=== PATIENT | female | born 1990 | race Caucasian/White ===

== ENCOUNTER → 2017-01-10 | Outpatient (CLI) | payer OTHER ==
[~2017-01-10] MED LIST: OXYC-471 PO; PNV1TABL81 PO
== END ==
DX: M54.2 Cervicalgia (principal); M79.622 Pain in left upper arm

== ENCOUNTER 2018-11-23 09:23 | Emergency (ER) | payer OTHER ==
[~2018-11-23] VITALS: Ht 157.5 cm; Wt 56.7 kg
[2018-11-23 10:12] LABS: CLARITY,URINE CLEAR; COLOR,URINE YELLOW; GLUCOSE, URINE (UA) NEGATIVE (NEGATIVE); KETONES,URINE NEGATIVE (NEGATIVE); LEUKOCYTE ESTERASE ,URINE 1+ (NEGATIVE); NITRITE,URINE POSITIVE (NEGATIVE); PH,URINE 7 (5-9); PROTEIN,URINE NEGATIVE (NEGATIVE); UROBILINOGEN,URINE 4 MG/DL (NORMAL)
[2018-11-23 10:24] LABS: BACTERIA,URINE NEGATIVE /HPF; BILIRUBIN,URINE 2+ (NEGATIVE); RBC,URINE 0-2 /HPF; SQUAMOUS EPITHELIAL CELL,UR RARE /HPF
[2018-11-23] MEDS ORDERED: PHENAZOPYRIDINE 100 MG (PYRIDIUM) TABLET PO ONE (10:45)
[2018-11-23] MEDS ORDERED: NS IV 1000 ML 1,000 ML IV SCH (10:45)
[2018-11-23] MEDS ORDERED: cefTRIAXone FOR IV USE 1,000 MG in WATER (STERILE) FOR INJECTION 10 ML IV ONE (10:45)
--- NOTE | 2018-11-23 10:47 | ED GU-Female ---
General Chief Complaint: - Urinary Stated Complaint: L SIDE/LOWER BACK PAIN Nursing Triage Note: PATIENT AMBULATORY TO ER WITH COMPLAINT OF LEFT FLANK PAIN RADIATING INTO LEFT LOWER PELVIS. PATIENT STATES SYMPTOMS BEGAN ON SATURDAY AND SHE CALLED HER [employer]REET[employer] REPAIRER HELPER DR. SARA RAPHAEL AND WAS PLACED ON MACROBID. SHE HAD A UA CULTURE AT THAT TIME WHICH SHE STATES WAS NEGATIVE. SHE STATES ON SATURDAY THE SYMPTOMS GOT WORSE SO SHE SAW DR. ROLLINS WHO GAVE HER AN IM ANTIBIOTIC. THE PAIN CONTINUES TODAY WITH NO RELIEF. SHE HAS BEEN TAKING PYRIDIUM WITH NO RELIEF. SHE STATES SHE FEELS LIKE HER BLADDER IS FULL AND HAS PAIN WITH URINATION. SHE IS ALSO COMPLAINING OF NAUSEA AND WEAKNESS. Nursing Sepsis Screen: No Definite Risk Source: patient Exam Limitations: no limitations History of Present Illness Date Seen by Provider: November 23, 2018 Time Seen by Provider: 10:46 Initial Comments To ER with left flank pain 1 week. Has been on Macrobid, Pyridium which she is still on. She was also given an injection of antibiotic one point. Pain began Saturday, symptoms are essentially not improved today. No fevers or chills. States that she's had a bladder infection before and this feels different. She has a constant sensation of need to empty her bladder but unable to do so. Timing/Duration: constant Severity/Quality: moderate Location: left flank Radiation: none Activities at Onset: none Prior Genitourinary Problems: none Associated Symptoms: dysuria Allergies and Home Medications Allergies Coded Allergies: Sulfa (Sulfonamide Antibiotics) (Verified Allergy, Intermediate, 11/23/18) Home Medications Ketorolac Tromethamine 10 Mg Tablet, 10 MG PO Q6H PRN for PAIN-MODERATE TO SEVERE Prescribed by: MANUEL CALIX on 11/23/18 1143 Tamsulosin HCl 0.4 Mg Cap, 0.4 MG PO DAILY Prescribed by: MANUEL CALIX on 11/23/18 1143 Patient Home Medication List Home Medication List Reviewed: Yes Review of Systems Review of Systems Constitutional: see HPI; No chills, No fever EENTM: see HPI Respiratory: no symptoms reported Cardiovascular: no symptoms reported Genitourinary: see HPI, dysuria, frequency, flank pain Musculoskeletal: no symptoms reported Skin: no symptoms reported Psychiatric/Neurological: No Symptoms Reported Past Dyvmgqa-Nlhoha-Feqjto Hx Patient Social History Alcohol Use: Denies Use Recreational Drug Use: No Smoking Status: Never a Smoker 2nd Hand Smoke Exposure: No Recent Foreign Travel: No Contact w/Someone Who Travel: No Recent Infectious Disease Expo: No Recent Hopitalizations: No Immunizations Up To Date PED Vaccines UTD: Yes Date of Influenza Vaccine: May 05, 2015 Seasonal Allergies Seasonal Allergies: No Past Medical History Surgeries: No Respiratory: No Cardiac: No Neurological: No : No Reproductive Disorders: No Genitourinary: No Gastrointestinal: No Musculoskeletal: No Endocrine: No HEENT: No Cancer: No Psychosocial: No Integumentary: No Blood Disorders: No Family Medical History No Pertinent Family Hx Physical Exam Vital Signs Vital Signs - First Documented 11/23/18 09:28 Temp 98.4 Pulse 103 Resp 16 B/P (MAP) 126/98 (107) Pulse Ox 97 O2 Delivery Room Air Capillary Refill : Less Than 3 Seconds Height, Weight, BMI Height: 5'2.00" Weight: 125lbs. 1.0oz. [id number]; 23.8 BMI Method:Actual General Appearance: WD/WN, no apparent distress HEENT: PERRL/EOMI, normal ENT inspection Neck: non-tender, full range of motion Respiratory: no respiratory distress, no accessory muscle use Gastrointestinal: normal bowel sounds, soft, tenderness Extremities: normal range of motion, non-tender Neurologic/Psychiatric: alert, normal mood/affect, oriented x 3 Skin: normal color, warm/dry Progress/Results/Core Measures Suspected Sepsis Recent Fever Within 48 Hours: No Infection Criteria Present: None New/Unexplained Altered Menta: No Sepsis Screen: No Definite Risk SIRS Temperature:98.4 Pulse: 103 Respiratory Rate: 16 Laboratory Tests 11/23/18 11:02: White Blood Count 9.3 Blood Pressure 126 /98 Mean: 107 Laboratory Tests 11/23/18 11:02: Creatinine 0.84, Platelet Count 228, Total Bilirubin 0.4 Results/Orders Lab Results Laboratory Tests Test 11/23/18 09:40 11/23/18 11:02 Range/Units Urine Color YELLOW Urine Clarity CLEAR Urine pH 7 5-9 Urine Specific Melcroft 1.005 L 1.016-1.022 Urine Protein NEGATIVE NEGATIVE Urine Glucose (UA) NEGATIVE NEGATIVE Urine Ketones NEGATIVE NEGATIVE Urine Nitrite POSITIVE H NEGATIVE Urine Bilirubin 2+ H NEGATIVE Urine Urobilinogen 4 H NORMAL MG/DL Urine Leukocyte Esterase 1+ H NEGATIVE Urine RBC (Auto) 1+ H NEGATIVE Urine RBC 0-2 /HPF Urine WBC 2-5 /HPF Urine Squamous Epithelial Cells RARE /HPF Urine Crystals NONE /LPF Urine Bacteria NEGATIVE /HPF Urine Casts NONE /LPF Urine Mucus NEGATIVE /LPF Urine Culture Indicated YES Urine Test NEGATIVE NEGATIVE White Blood Count 9.3 4.3-11.0 10^3/uL Red Blood Count 5.03 4.35-5.85 10^6/uL Hemoglobin 14.0 11.5-16.0 G/DL Hematocrit 42 35-52 % Mean Corpuscular Volume 84 80-99 FL Mean Corpuscular Hemoglobin 28 25-34 PG Mean Corpuscular Hemoglobin Concent 33 32-36 G/DL Red Cell Distribution Width 14.3 10.0-14.5 % Platelet Count 228 130-400 10^3/uL Mean Platelet Volume 9.2 7.4-10.4 FL Neutrophils (%) (Auto) 67 42-75 % Lymphocytes (%) (Auto) 21 12-44 % Monocytes (%) (Auto) 9 0-12 % Eosinophils (%) (Auto) 3 0-10 % Basophils (%) (Auto) 1 0-10 % Neutrophils # (Auto) 6.2 1.8-7.8 X 10^3 Lymphocytes # (Auto) 2.0 1.0-4.0 X 10^3 Monocytes # (Auto) 0.8 0.0-1.0 X 10^3 Eosinophils # (Auto) 0.3 0.0-0.3 10^3/uL Basophils # (Auto) 0.1 0.0-0.1 10^3/uL Sodium Level 142 135-145 MMOL/L Potassium Level 4.3 3.6-5.0 MMOL/L Chloride Level 106 98-107 MMOL/L Carbon Dioxide Level 27 21-32 MMOL/L Anion Gap 9 5-14 MMOL/L Blood Urea Nitrogen 12 7-18 MG/DL Creatinine 0.84 0.60-1.30 MG/DL Estimat Glomerular Filtration Rate > 60 BUN/Creatinine Ratio 14 Glucose Level 86 70-105 MG/DL Calcium Level 9.7 8.5-10.1 MG/DL Corrected Calcium 8.5-10.1 MG/DL Total Bilirubin 0.4 0.1-1.0 MG/DL Aspartate Amino Transf (AST/SGOT) 30 5-34 U/L Alanine Aminotransferase (ALT/SGPT) 38 0-55 U/L Alkaline Phosphatase 91 40-136 U/L Total Protein 7.7 6.4-8.2 GM/DL Albumin 4.7 H 3.2-4.5 GM/DL My Orders Orders - MANUEL CALIX APRN Cbc With Automated Diff (11/23/18 10:42) Comprehensive Metabolic Panel (11/23/18 10:42) Ed Iv/Invasive Line Start (11/23/18 10:42) Ns Iv 1000 Ml (Sodium Chloride 0.9%) (11/23/18 10:45) Ceftriaxone For Iv Use (Rocephin For I (11/23/18 10:45) Phenazopyridine Tablet (Pyridium Tablet) (11/23/18 10:45) Hcg,Qualitative Urine (11/23/18 10:45) Ct Abd/Pelvis Wo(Kidney Stone) (11/23/18 10:45) Ketorolac Injection (Toradol Injection) (11/23/18 11:45) Medications Given in ED Current Medications Medications Dose Ordered Sig/Kurt Route Start Time Stop Time Status Last Admin Dose Admin Ceftriaxone Sodium 1000 mg/ Sterile Water 10 ml @ 200 mls/hr ONCE ONCE IV 11/23/18 10:45 11/23/18 10:47 DC 11/23/18 11:04 200 MLS/HR Ketorolac Tromethamine 15 mg ONCE ONCE IVP 11/23/18 11:45 11/23/18 11:46 DC 11/23/18 11:47 15 MG Phenazopyridine HCl 200 mg ONCE ONCE PO 11/23/18 10:45 11/23/18 10:46 DC 11/23/18 11:04 200 MG Vital Signs/I&O 11/23/18 09:28 Temp 98.4 Pulse 103 Resp 16 B/P (MAP) 126/98 (107) Pulse Ox 97 O2 Delivery Room Air Capillary Refill : Less Than 3 Seconds Blood Pressure Mean: 107 Diagnostic Imaging Diagonstic Imaging: CT Comments NAME: THANH IBARRA Angela [facility] REC#: [id number] PT STATUS: REG ER : 1990 PHYSICIAN: MANUEL CALIX APRN ADMIT DATE: 11/23/18/ER Draft Date of Exam:11/23/18 CT ABD/PELVIS WO(KIDNEY STONE) PROCEDURE: CT urinary tract, rule out kidney stone. TECHNIQUE: Multiple contiguous axial images were obtained through the abdomen and pelvis without the use of intravenous contrast. Auto Exposure Controls were utilized during the CT exam to meet ALARA standards for radiation dose reduction. INDICATION: Left flank pain. COMPARISON: None. FINDINGS: Lung bases are clear. The liver, gallbladder, pancreas, spleen, adrenals, kidneys and right ureter are negative on this noncontrast exam. There is a 0.4 cm renal stone in the left ureterovesicular junction resulting in mild to moderate left ureteral pyelocaliectasis. No renal stones. Normal appendix. No free intraperitoneal air or fluid. No lymphadenopathy. No evidence of bowel obstruction. Osseous structures are intact. IMPRESSION: 0.4 cm renal stone in the left ureterovesicular junction resulting in mild to moderate left hydronephrosis. Dictated on workstation # [id number] Dict: 11/23/18 1137 Trans: 11/23/18 1148 [id number] Interpreted by: LUCIANO JACQUES MD Electronically signed by: Departure Impression Primary Impression: Left ureteral stone Disposition: 01 HOME, SELF-CARE Condition: Stable Departure-Patient Inst. Decision time for Depature: 11:41 Referrals: LAVINIA ROLLINS DO (PCP/Family) Primary Care Physician EDGARD VANN MD Patient Instructions: How to Strain Your Urine, Kidney Stones in Adults Add. Discharge Instructions: 1. Return to ER for any fevers, intolerable pain. If you do not pass this stone on your own in the next 4-48 hours, call Dr. Vann as he may need to remove this stone for you. Medications as directed. Continue the Macrobid antibiotics. If you are breast-feeding, the use of either of the 2 prescriptions of tamsulosin and or ketorolac is not recommended, if you do use these, you should pump and dump for 24 hours after use. However, you do not have to use either one of these. If he would prefer to simply use Tylenol and Motrin which are both safe in breast-feeding, he may simply do that. Ibuprofen would be more helpful in resolving this pain for you than Tylenol would but it is fine to add Tylenol to the ibuprofen. All discharge instructions reviewed with patient and/or family. Voiced understanding. Scripts Tamsulosin HCl (Flomax) 0.4 Mg Cap 0.4 MG PO DAILY, #14 CAP Prov: MANUEL CALIX APRN 11/23/18 Ketorolac Tromethamine (Ketorolac Tromethamine) 10 Mg Tablet 10 MG PO Q6H PRN for PAIN-MODERATE TO SEVERE, #15 TAB Prov: MANUEL CALIX APRN 11/23/18 Copy Copies To 1: LAVINIA ROLLINS DO; EDGARD VANN MD, PETER J APRN November 23, 2018 10:47
[2018-11-23 11:15] LABS: BASOPHILS # (AUTO) 0.1 10^3/uL (0.0-0.1); BASOPHILS % (AUTO) 1 % (0-10); EOSINOPHILS # (AUTO) 0.3 10^3/uL (0.0-0.3); EOSINOPHILS % (AUTO) 3 % (0-10); HEMATOCRIT 42 % (35-52); LYMPHOCYTES % (AUTO) 21 % (12-44); MEAN CORPUSCULAR HEMOGLOBIN 28 PG (25-34); MEAN CORPUSCULAR HGB CONC 33 G/DL (32-36); MEAN CORPUSCULAR VOLUME 84 FL (80-99); MEAN PLATELET VOLUME 9.2 FL (7.4-10.4); MONOCYTES # (AUTO) 0.8 X 10^3 (0.0-1.0); MONOCYTES % (AUTO) 9 % (0-12); NEUTROPHILS # (AUTO) 6.2 X 10^3 (1.8-7.8); NEUTROPHILS % (AUTO) 67 % (42-75); PLATELET COUNT 228 10^3/uL (130-400); RED CELL DISTRIBUTION WIDTH 14.3 % (10.0-14.5); WHITE BLOOD COUNT 9.3 10^3/uL (4.3-11.0)
[2018-11-23 11:31] LABS: ALANINE AMINOTRANSFERASE 38 U/L (0-55); ALBUMIN 4.7 GM/DL (3.2-4.5); ALKALINE PHOSPHATASE 91 U/L (40-136); BILIRUBIN,TOTAL 0.4 MG/DL (0.1-1.0); BUN/CREATININE RATIO 14; CALCIUM 9.7 MG/DL (8.5-10.1); CARBON DIOXIDE 27 MMOL/L (21-32); CHLORIDE 106 MMOL/L (98-107); CREATININE SERUM 0.84 MG/DL (0.60-1.30); GFR ESTIMATED > 60; GLUCOSE 86 MG/DL (70-105); POTASSIUM 4.3 MMOL/L (3.6-5.0); SODIUM 142 MMOL/L (135-145); TOTAL PROTEIN 7.7 GM/DL (6.4-8.2)
[2018-11-23] MEDS ORDERED: TAMS0.4C98 PO (11:43)
[2018-11-23] MEDS ORDERED: KETO10TA PO (11:43)
[2018-11-23] MEDS ORDERED: KETOROLAC 30 MG/ML VIAL IVP ONE (11:45)
--- NOTE | 2018-11-23 11:48 | Diagnostic Imaging Report ---
PROCEDURE: CT urinary tract, rule out kidney stone. TECHNIQUE: Multiple contiguous axial images were obtained through the abdomen and pelvis without the use of intravenous contrast. Auto Exposure Controls were utilized during the CT exam to meet ALARA standards for radiation dose reduction. INDICATION: Left flank pain. COMPARISON: None. FINDINGS: Lung bases are clear. The liver, gallbladder, pancreas, spleen, adrenals, kidneys and right ureter are negative on this noncontrast exam. There is a 0.4 cm renal stone in the left ureterovesicular junction resulting in mild to moderate left ureteral pyelocaliectasis. No renal stones. Normal appendix. No free intraperitoneal air or fluid. No lymphadenopathy. No evidence of bowel obstruction. Osseous structures are intact. IMPRESSION: 0.4 cm renal stone in the left ureterovesicular junction resulting in mild to moderate left hydronephrosis. Dictated by: Dictated on workstation # [id number]
[2018-11-23 12:05] VITALS: BP 125/81
== END 2018-11-23 12:07 | disposition home or self-care (01) ==
LOC: EDUNIT# 09:23 → ER 09:25
DX: N13.2 Hydronephrosis with renal and ureteral calculous obstruction (principal); Z88.2 Allergy status to sulfonamides
CPT/HCPCS: 36415; 74176; 80053; 81000; 84703; 85025; 87088; 96361; 96365; 96375

== ENCOUNTER → 2018-12-02 | Outpatient (CLI) | payer OTHER ==
[~2018-12-02] MED LIST changes: +KETO10TA PO; +TAMS0.4C98 PO
--- NOTE | 2018-12-02 14:24 | Diagnostic Imaging Report ---
INDICATION: Left renal stone, followup. TECHNIQUE: Two supine view of the abdomen 2:06 p.m. CORRELATION STUDY: Renal colic CT 11/23/2018 FINDINGS: There is presence of small calcifications in the bilateral lower hemipelvis. The one on the left likely reflects a phlebolith calcification. Definitive visualization of the previously identified distal left ureteral stone does not appear to be present. Additional calcification of the right hemipelvis also likely outside the course of the ureter. No definitive calcification superimposed over either renal silhouette. There is a moderate amount of overlying bowel gas and stool present obscuring detail. Bowel gas pattern nonobstructed. IMPRESSION: 1. Nonvisualization of the previously demonstrated 4 mm distal left ureteral stone. Dictated by: Dictated on workstation # [id number]
== END ==
LOC: RAD 13:55
PROVIDERS: ATTEND Urology
DX: N20.2 Calculus of kidney with calculus of ureter (principal)
CPT/HCPCS: 74018

== ENCOUNTER → 2018-12-09 | Outpatient (CLI) | payer OTHER ==
--- NOTE | 2018-12-09 12:40 | Diagnostic Imaging Report ---
INDICATION: Left flank pain, history of stones. TECHNIQUE: CT of the abdomen and pelvis obtained without IV contrast and compared with 11/23/2018. FINDINGS: Visualized portions of the lung bases are clear. There were no pleural fluid collections. There is no free intraperitoneal air. The liver shows a small nonspecific lesion in the right lobe posteriorly and superiorly near the dome measuring about 1.2 cm. This finding is unchanged compared to the prior study. The gallbladder appears normal. The spleen, adrenals, and pancreas appear normal. The right kidney appear normal. The left kidney shows a tiny nonocclusive stone in the lower pole calyceal region. There is no hydronephrosis or ureteral stone. The hydronephrotic changes of the left kidney have resolved compared to the prior study. The stone previously seen at the left UVJ is no longer apparent. There is no retroperitoneal mass or adenopathy. There is no ascites or abnormal fluid collection. Visualized bowel loops, including the appendix, appear unremarkable. There is no adnexal mass or free fluid. IMPRESSION: Compared to the prior study of 11/23/2018, the stone at the left UVJ is no longer present and the left hydronephrotic changes have resolved. There is a tiny nonocclusive stone in the lower pole of the left kidney. There is a 1.2 cm hypodense lesion in the right lobe of the liver superiorly but is unchanged compared to the prior study. This lesion could be followed up as clinically warranted. Dictated by: Dictated on workstation # [id number]
== END ==
LOC: RAD 11:48
PROVIDERS: ATTEND Urology
DX: K76.9 Liver disease, unspecified (principal); Z87.442 Personal history of urinary calculi
CPT/HCPCS: 74176

== ENCOUNTER → 2019-01-20 | Outpatient (CLI) | payer OTHER ==
[~2019-01-20] MED LIST changes: +CEPH500C PO
--- NOTE | 2019-01-20 17:30 | Diagnostic Imaging Report ---
PROCEDURE: CT urinary tract, rule out kidney stone. TECHNIQUE: Multiple contiguous axial images were obtained through the abdomen and pelvis without the use of intravenous contrast. Auto Exposure Controls were utilized during the CT exam to meet ALARA standards for radiation dose reduction. INDICATION: Right-sided pain radiating to groin. COMPARISON: Comparison is made with prior CT from 12/09/2018. FINDINGS: The lung bases are clear. The liver and gallbladder are unremarkable. No biliary ductal dilatation is seen. Pancreas and spleen are unremarkable. No adrenal masses are identified. Left kidney is unremarkable. The right kidney is enlarged. There appears to be significant hydronephrosis and hydroureter. The dilated right ureter is traced into the pelvis. There is a 6 mm calcific density in the right pelvis which has been present on prior CTs and uncertain if this represents a true distal ureteric calculus versus phlebolith. This is in a position just proximal to the UVJ. Delayed postcontrast study may be useful for further evaluation. No other pelvic calcifications or bladder calculi are seen. The aorta is non-aneurysmal. Small and large bowel loops are normal caliber. There is no ascites. Uterus is unremarkable. IMPRESSION: There has been interval development of right renal enlargement with significant right hydroureteronephrosis. The exact etiology to right hydroureteronephrosis is indeterminate, although there is a 6 mm calcific density in the right pelvis. This has been present on prior CTs. It is uncertain if this is just distal ureteric versus a phlebolith. No other suspicious calcifications along the course of the right ureter are seen. No other significant abnormalities are detected. Dictated by: Dictated on workstation # [id number]
== END ==
LOC: RAD 16:33
PROVIDERS: ATTEND Urology
DX: N13.30 Unspecified hydronephrosis (principal); N28.81 Hypertrophy of kidney; N94.89 Other specified conditions associated with female genital organs and menstrual cycle; Z87.442 Personal history of urinary calculi
CPT/HCPCS: 74176

== ENCOUNTER 2019-01-21 14:24 | Outpatient (CLI) | payer OTHER ==
[~2019-01-21] VITALS: Ht 157.5 cm; Wt 56.7 kg
[~2019-01-21 14:24] MED LIST changes: -CEPH500C PO
[2019-01-21] MEDS ORDERED: CEPH500C PO ×2 (15:41)
[2019-01-21] MEDS ORDERED: PNV1TABL81 PO ×2 (15:41)
== END 2019-01-21 15:45 | disposition home or self-care (01) ==
LOC: PREOP 14:24
PROVIDERS: ATTEND Urology
DX: Z01.818 Encounter for other preprocedural examination (principal)

== ENCOUNTER 2019-01-23 10:06 | Day surgery (SDC) | payer OTHER ==
[~2019-01-23] VITALS: Ht 157.5 cm; Wt 56.7 kg
[2019-01-23] VITALS (11 sets, daily range): BP systolic 89–112; BP diastolic 56–89
--- NOTE | 2019-01-23 09:21 | Progress Note-Pre Operative ---
Pre-Operative Progress Note H&P Reviewed The H&P was reviewed, patient examined and no changes noted. Date Seen by Provider: Jan 23, 2019 Time Seen by Provider: 11:33 Date H&P Reviewed: Jan 23, 2019 Time H&P Reviewed: 11:33 Pre-Operative Diagnosis: RT DISTAL URETERAL STONE EDGARD KABA MD Jan 23, 2019 09:21
[~2019-01-23 10:06] MED LIST changes: +CEPH500C PO
--- OUTSIDE RECORDS SUMMARY | 2019-01-23 10:09 | XMS REPORT | Continuity of Care Document ---
Author Organization Unknown Address Unknown Allergies Active Description Code Type Severity Reaction Onset Reported/Identified Relationship to Patient Clinical Status Yes Sulfa (Sulfonamide Antibiotics) [id number] Drug Allergy Moderate N/A 11/23/2018 Medications There is no data. Problems Date Dx Coded Attending Type Code Diagnosis Diagnosed By 01/25/2015 OLEGARIO SIERRA, HANSA Tripp Ot 789.01 01/25/2015 OLEGARIO SIERRA, HANSA Tripp Ot V22.0 01/25/2015 HANSA MELVIN MD Ot V22.0 03/17/2015 DHEERAJ GARCIAP Ot 723.1 06/14/2015 Ot 793.19 06/14/2015 Ot 795.51 06/14/2015 DHEERAJ GARCIA TAPE CUTTER Ot 723.1 06/14/2015 HANSA MELVIN MD Ot 789.01 06/14/2015 HANSA MELVIN MD Ot V22.0 06/14/2015 HANSA MELVIN MD Ot V22.0 06/14/2015 DHEERAJ GARCIA TAPE CUTTER Ot 723.1 06/20/2015 HANSA MELVIN MD Ot 789.01 06/20/2015 HANSA MELVIN MD Ot V22.0 06/20/2015 HANSA MELVIN MD Ot V22.0 06/20/2015 DHEERAJ GARCIA TAPE CUTTER Ot 723.1 06/20/2015 ED ABRAHAM MD Ot O03.9 COMPLETE OR UNSP SPONTANEOUS [place] 06/20/2015 ED ABRAHAM MD Ot Z3A.08 8 WEEKS GESTATION OF 06/20/2015 OLEGARIO SIERRA, HANSA Tripp Ot 789.01 06/20/2015 HANSA MELVIN MD Ot V22.0 06/20/2015 HANSA MELVIN MD Ot V22.0 06/20/2015 DHEERAJ GARCIA TAPE CUTTER Ot 723.1 03/30/2016 OLEGARIO SIERRA, HANSA Tripp Ot 789.01 ABDOMINAL PAIN, RIGHT UPPER QUADRANT 03/30/2016 OLEGARIO SIERRA, HANSA Tripp Ot V22.0 SUPERVIS NORMAL 1ST PREG 03/30/2016 HANSA MELVIN MD Ot V22.0 SUPERVIS NORMAL 1ST PREG 03/30/2016 DHEERAJ GARCIA TAPE CUTTER Ot 723.1 CERVICALGIA 03/30/2016 TIGIST SOTO MD Ot O9A.212 INJ/POISN/OTH CONSEQ OF EXTRN CAUSES COM 03/30/2016 TIGIST SOTO MD, Ot S30.23XA CONTUSION OF VAGINA AND VULVA, INITIAL E 03/30/2016 TIGIST SOTO MD, Ot W51.XXXA ACCIDENTAL STRIKE OR BUMPED INTO BY ANOT 03/30/2016 TIGIST SOTO MD, Ot Y99.8 OTHER EXTERNAL CAUSE STATUS 03/30/2016 TIGIST SOTO MD, Ot Z3A.27 27 WEEKS GESTATION OF 04/02/2016 TIGIST SOTO MD, Ot O9A.212 INJ/POISN/OTH CONSEQ OF EXTRN CAUSES COM 04/02/2016 TIGIST SOTO MD, Ot S30.23XA CONTUSION OF VAGINA AND VULVA, INITIAL E 04/02/2016 TIGIST SOTO MD, Ot W51.XXXA ACCIDENTAL STRIKE OR BUMPED INTO BY ANOT 04/02/2016 TIGIST SOTO MD, Ot Y99.8 OTHER EXTERNAL CAUSE STATUS 04/02/2016 TIGIST SOTO MD, Ot Z3A.27 27 WEEKS GESTATION OF 04/03/2016 TIGIST SOTO MD, Ot O9A.212 INJ/POISN/OTH CONSEQ OF EXTRN CAUSES COM 04/03/2016 TIGIST SOTO MD, Ot S30.23XA CONTUSION OF VAGINA AND VULVA, INITIAL E 04/03/2016 TIGIST SOTO MD, Ot W51.XXXA ACCIDENTAL STRIKE OR BUMPED INTO BY ANOT 04/03/2016 TIGIST SOTO MD, Ot Y99.8 OTHER EXTERNAL CAUSE STATUS 04/03/2016 CHARLES SIERRA, TIGIST Angelina Ot Z3A.27 27 WEEKS GESTATION OF 01/11/2017 WILLIAMNDER DO, LAVINIA S Ot M54.2 CERVICALGIA 01/11/2017 WILLIAMNDER DO, LAVINIA S Ot M79.622 PAIN IN LEFT UPPER ARM 02/18/2017 WILLIAMNDER DO, LAVINIA S Ot M54.2 CERVICALGIA 02/18/2017 WILLIAMNDER DO, LAVINIA S Ot M79.622 PAIN IN LEFT UPPER ARM 11/23/2018 MANUEL CALIX ASSISTANT COUNSEL Ot N13.2 HYDRONEPHROSIS WITH RENAL AND URETERAL C 11/23/2018 MANUEL CALIX ASSISTANT COUNSEL Ot R10.9 UNSPECIFIED ABDOMINAL PAIN 11/23/2018 MANUEL CALIX ASSISTANT COUNSEL Ot Z88.2 ALLERGY STATUS TO SULFONAMIDES STATUS 11/26/2018 MANUEL CALIX ASSISTANT COUNSEL Ot N13.2 HYDRONEPHROSIS WITH RENAL AND URETERAL C 11/26/2018 MANUEL CALIX ASSISTANT COUNSEL Ot R10.9 UNSPECIFIED ABDOMINAL PAIN 11/26/2018 MANUEL CALIX ASSISTANT COUNSEL Ot Z88.2 ALLERGY STATUS TO SULFONAMIDES STATUS 11/29/2018 MANUEL CALIX ASSISTANT COUNSEL Ot N13.2 HYDRONEPHROSIS WITH RENAL AND URETERAL C 11/29/2018 MANUEL CALIX ASSISTANT COUNSEL Ot R10.9 UNSPECIFIED ABDOMINAL PAIN 11/29/2018 MANUEL CALIX ASSISTANT COUNSEL Ot Z88.2 ALLERGY STATUS TO SULFONAMIDES STATUS 12/02/2018 AYO ORDAZ, LAVINIA S Ot M54.2 CERVICALGIA 12/02/2018 WILLIAMNDER , LAVINIA S Ot M79.622 PAIN IN LEFT UPPER ARM 12/03/2018 SENDY SIERRA, EDGARD Jacob Ot N20.2 CALCULUS OF KIDNEY WITH CALCULUS OF URET 12/10/2018 SENDY SIERRA, EDGARD Jacob Ot K76.9 LIVER DISEASE, UNSPECIFIED 12/10/2018 EDGARD KABA MD Ot Z87.442 PERSONAL HISTORY OF URINARY CALCULI 01/20/2019 WILLIAMNDER DO, LAVINIA S Ot M54.2 CERVICALGIA 01/20/2019 WILLIAMNDER DO, LAVINIA S Ot M79.622 PAIN IN LEFT UPPER ARM 01/20/2019 EDGARD KABA MD, Ot N20.2 CALCULUS OF KIDNEY WITH CALCULUS OF URET 01/20/2019 EDGARD KABA MD, Ot K76.9 LIVER DISEASE, UNSPECIFIED 01/20/2019 EDGARD KABA MD, Ot Z87.442 PERSONAL HISTORY OF URINARY CALCULI 01/21/2019 EDGARD KABA MD, Ot N13.30 UNSPECIFIED HYDRONEPHROSIS 01/21/2019 EDGARD KABA MD, Ot N28.81 HYPERTROPHY OF KIDNEY 01/21/2019 EDGARD KABA MD, Ot N94.89 OTH COND ASSOC W FEMALE GENITAL ORGANS A 01/21/2019 EDGARD KABA MD, Ot Z87.442 PERSONAL HISTORY OF URINARY CALCULI Procedures There is no data. Results Test Result Range Automated blood complete blood count (hemogram) panel - 03/30/16 15:15 Blood leukocytes automated count (number/volume) 14.0 10*3/uL 4.3-11.0 Blood erythrocytes automated count (number/volume) 3.41 10*6/uL 4.35-5.85 Venous blood hemoglobin measurement (mass/volume) 10.5 g/dL 11.5-16.0 Blood hematocrit (volume fraction) 31 % 35-52 Automated erythrocyte mean corpuscular volume 91 [foz_us] 80-99 Automated erythrocyte mean corpuscular hemoglobin (mass per erythrocyte) 31 pg 25-34 Automated erythrocyte mean corpuscular hemoglobin concentration measurement (mass/volume) 34 g/dL 32-36 Automated erythrocyte distribution width ratio 13.4 % 10.0- 14.5 Automated blood platelet count (count/volume) 166 10*3/uL 130-400 Automated blood platelet mean volume measurement 8.7 [foz_us] 7.4-10.4 Complete urinalysis with reflex to culture - 11/23/18 09:40 Urine color determination YELLOW NRG Urine clarity determination CLEAR NRG Urine pH measurement by test strip 7 5-9 Specific gravity of urine by test strip 1.005 1.016-1.022 Urine protein assay by test strip, semi-quantitative NEGATIVE NEGATIVE Urine glucose detection by automated test strip NEGATIVE NEGATIVE Erythrocytes detection in urine sediment by light microscopy 1+ NEGATIVE Urine ketones detection by automated test strip NEGATIVE NEGATIVE Urine nitrite detection by test strip POSITIVE NEGATIVE Urine total bilirubin detection by test strip 2+ NEGATIVE Urine urobilinogen measurement by automated test strip (mass/volume) 4 mg/dL NORMAL Urine leukocyte esterase detection by dipstick 1+ NEGATIVE Automated urine sediment erythrocyte count by microscopy (number/high power field) [HPF] NRG Automated urine sediment leukocyte count by microscopy (number/high power field) [HPF] NRG Bacteria detection in urine sediment by light microscopy NEGATIVE NRG Squamous epithelial cells detection in urine sediment by light microscopy RARE NRG Crystals detection in urine sediment by light microscopy NONE NRG Casts detection in urine sediment by light microscopy NONE NRG Mucus detection in urine sediment by light microscopy NEGATIVE NRG Complete urinalysis with reflex to culture YES NRG Urine beta human chorionic gonadotropin (hCG) measurement - 11/23/18 09:40 Urine beta human chorionic gonadotropin (hCG) measurement NEGATIVE NEGATIVE Bacterial urine culture - 11/23/18 09:40 Bacterial urine culture NG NRG Complete blood count (CBC) with automated white blood cell (WBC) differential - 11/23/18 11:02 Blood leukocytes automated count (number/volume) 9.3 10*3/uL 4.3-11.0 Blood erythrocytes automated count (number/volume) 5.03 10*6/uL 4.35-5.85 Venous blood hemoglobin measurement (mass/volume) 14.0 g/dL 11.5-16.0 Blood hematocrit (volume fraction) 42 % 35-52 Automated erythrocyte mean corpuscular volume 84 [foz_us] 80-99 Automated erythrocyte mean corpuscular hemoglobin (mass per erythrocyte) 28 pg 25-34 Automated erythrocyte mean corpuscular hemoglobin concentration measurement (mass/volume) 33 g/dL 32-36 Automated erythrocyte distribution width ratio 14.3 % 10.0- 14.5 Automated blood platelet count (count/volume) 228 10*3/uL 130-400 Automated blood platelet mean volume measurement 9.2 [foz_us] 7.4-10.4 Automated blood neutrophils/100 leukocytes 67 % 42-75 Automated blood lymphocytes/100 leukocytes 21 % 12-44 Blood monocytes/100 leukocytes 9 % 0-12 Automated blood eosinophils/100 leukocytes 3 % 0-10 Automated blood basophils/100 leukocytes 1 % 0-10 Blood neutrophils automated count (number/volume) 6.2 10*3 1.8-7.8 Blood lymphocytes automated count (number/volume) 2.0 10*3 1.0-4.0 Blood monocytes automated count (number/volume) 0.8 10*3 0.0- 1.0 Automated eosinophil count 0.3 10*3/uL 0.0-0.3 Automated blood basophil count (count/volume) 0.1 10*3/uL 0.0-0.1 Comprehensive metabolic panel - 11/23/18 11:02 Serum or plasma sodium measurement (moles/volume) 142 mmol/L 135-145 Serum or plasma potassium measurement (moles/volume) 4.3 mmol/L 3.6-5.0 Serum or plasma chloride measurement (moles/volume) 106 mmol/L 98-107 Carbon dioxide 27 mmol/L 21-32 Serum or plasma anion gap determination (moles/volume) 9 mmol/L 5-14 Serum or plasma urea nitrogen measurement (mass/volume) 12 mg/dL 7-18 Serum or plasma creatinine measurement (mass/volume) 0.84 mg/dL 0.60-1.30 Serum or plasma urea nitrogen/creatinine mass ratio 14 NRG Serum or plasma creatinine measurement with calculation of estimated glomerular filtration rate > NRG Serum or plasma glucose measurement (mass/volume) 86 mg/dL 70-105 Serum or plasma calcium measurement (mass/volume) 9.7 mg/dL 8.5-10.1 Serum or plasma total bilirubin measurement (mass/volume) 0.4 mg/dL 0.1-1.0 Serum or plasma alkaline phosphatase measurement (enzymatic activity/volume) 91 U/L 40-136 Serum or plasma aspartate aminotransferase measurement (enzymatic activity/volume) 30 U/L 5-34 Serum or plasma alanine aminotransferase measurement (enzymatic activity/volume) 38 U/L 0-55 Serum or plasma protein measurement (mass/volume) 7.7 g/dL 6.4-8.2 Serum or plasma albumin measurement (mass/volume) 4.7 g/dL 3.2-4.5 Encounters ACCT No. Visit Date/Time Discharge Status Pt. Type Provider Facility Loc./Unit Complaint [id number] 01/15/2019 14:17:16 01/15/2019 23:59:59 CLS Outpatient Lavinia Haddad [id number] 01/21/2019 14:24:00 01/21/2019 15:45:00 DIS Outpatient EDGARD KABA MD [facility] PREOP RIGHT URETERAL STONE [id number] 12/09/2018 11:48:00 12/09/2018 23:59:59 CLS Outpatient EDGARD KABA MD [facility] RAD LT URETERAL STONE [id number] 12/02/2018 13:55:00 12/02/2018 23:59:59 CLS Outpatient EDGARD KABA MD [facility] RAD LT STONE [id number] 11/23/2018 09:25:00 11/23/2018 12:07:00 DIS Emergency MANUEL CALIX APRN [facility] ER L SIDE/LOWER BACK PAIN [id number] 01/10/2017 10:06:00 01/10/2017 23:59:59 CLS Outpatient LAVINIA HADDAD DO [facility] RAD NECK PAIN [id number] 03/30/2016 14:48:00 03/30/2016 17:36:00 DIS Outpatient TIGIST SOTO MD [facility] WSo PELVIC PAIN [id number] 06/20/2015 12:59:00 06/20/2015 15:33:00 DIS Emergency ED ABRAHAM MD [facility] ER POSS MISCARRIAGE 8 WKS PREG [id number] 01/25/2015 14:55:00 01/25/2015 23:59:59 CLS Outpatient DHEERAJ GARCIA [facility] RAD NECK PAIN [id number] 07/03/2013 16:04:00 07/03/2013 23:59:59 CLS Outpatient HANSA MELVIN MD [facility] LAB SUPERVISION-PRIMIGRAVIDA [id number] 06/16/2013 12:52:00 06/16/2013 23:59:59 CLS Outpatient HANSA MELVIN MD [facility] RAD RUQ ABD PAIN, [id number] 01/23/2019 12:45:00 PEN Preadmit EDGARD KABA MD [facility] SDC RIGHT URETERAL STONE [id number] 01/20/2019 16:33:00 ACT Outpatient SENDY SIERRA, EDGARD Jacob [facility] RAD RT FLANK PAIN/HX OF STONES [id number] 02/29/2012 13:11:00 Document Registration
[2019-01-23] MEDS ORDERED: cefTRIAXone 1,000 MG/SWFI 10 ML IV PUSH IV ONE ×2 (10:30)
[2019-01-23] MEDS ORDERED: fentaNYL INJECTION 100 MCG/2 ML AMP ONE (10:45)
[2019-01-23] MEDS ORDERED: MIDAZOLAM 2 MG/2 ML (VERSED) VIAL ONE (10:45)
[2019-01-23] MEDS ORDERED: DEXAMETHASONE 10 MG/ML (DECADRON) 1 ML VIAL ONE (10:45)
[2019-01-23] MEDS ORDERED: LIDOCAINE PF 2% 5 ML (XYLOCAINE) VIAL ONE (10:45)
[2019-01-23] MEDS ORDERED: proPOfol 200 MG/20 ML (DIPRIVAN) VIAL IV ONE ×2 (10:45→12:32)
[2019-01-23] MEDS ORDERED: SEVOFLURANE (ULTANE) 15 ML INHAL SOLN ONE ×3 (10:45→14:28)
[2019-01-23] MEDS ORDERED: ONDANSETRON 4 MG/2 ML (SDV) Z0FRAN ONE (10:45)
--- NOTE | 2019-01-23 11:09 | Diagnostic Imaging Report ---
INDICATION: Followup ureteral calculus. COMPARISON: 01/20/2019. FINDINGS: Single supine radiographic view of the abdomen was obtained and again demonstrates approximately 6 mm extraosseous calcification in the right hemipelvis. Note is made that this has been present on prior imaging and it is uncertain if this represents ureteral calculus versus pelvic phlebolith. Left-sided pelvic phlebolith is also again noted. No new extraosseous calcification or radiopaque foreign body is seen. Small bowel loops are nondistended. Moderate air and stool is noted scattered throughout the colon. There is no large collection of free intraperitoneal air. Osseous structures show no new acute abnormalities. IMPRESSION: 1. Stable right-sided pelvic phleboliths versus distal ureteral calculus. 2. Moderate colonic air and stool. Please correlate for constipation. Dictated by: Dictated on workstation # [id number]
[2019-01-23] MEDS ORDERED: LACTATED RINGERS 1,000 ML IV PRN (11:12)
[2019-01-23] MEDS ORDERED: cefTRIAXone FOR IV USE 1,000 MG in WATER (STERILE) FOR INJECTION 10 ML IV ONE (11:15)
--- NOTE | 2019-01-23 12:38 | Progress Note-Post Operative ---
Post-Operative Progess Note Surgeon (s)/Fitness Sales Consultant (s) Surgeon EDGARD KABA MD Fitness Sales Consultant: NONE Pre-Operative Diagnosis RT DISTAL URETERAL STONE Post-Operative Diagnosis SAME Procedure & Operative Findings Date of Procedure 01/23/19 Procedure Performed/Findings RT URETEROSCOPY WITH STONE LITHOTRIPSY Anesthesia Type GENERAL Estimated Blood Loss Estimated blood loss (mL): NONE Specimens/Packing Specimens Removed NONE Packing: NONE EDGARD KABA MD Jan 23, 2019 12:38
[2019-01-23] MEDS ORDERED: KETOROLAC 30 MG/ML VIAL ONE (12:42)
[2019-01-23] MEDS ORDERED: FUROSEMIDE 40 MG/4 ML INJ (LASIX) ONE (12:42)
--- NOTE | 2019-01-23 12:42 | Discharge Inst-Urology ---
Discharge Inst-Urology Discharge Medications New, Converted, or Re-newed RX: RX on Chart Patient Instructions/Follow Up Plan Please make appointment to been seen in office in [address] home Strain and save any fragments passed and bring to office Lab to provide stone risk profile kit and instructions to do as OP Office in 3 weeks Increase oral fluids for 48 hours and then as needed. Diet and Activity as tolerated. If questions or concerns contact your physician Or seek help at emergency department. EDGARD KABA MD Jan 23, 2019 12:42
[2019-01-23] MEDS ORDERED: PHEN-640 PO ×2 (12:54)
[2019-01-23] MEDS ORDERED: morphine INJ 10 MG/ML 1ML (SYR OR VIAL) IVP ONE (13:15)
[2019-01-23] MEDS ORDERED: ONDANSETRON 4 MG/2 ML (SDV) Z0FRAN IVP PRN (13:15)
--- NOTE | 2019-01-23 14:59 | Diagnostic Imaging Report ---
PATIENT HISTORY: POST OP RIGHT URETERAL STONE. TECHNIQUE: Frontal view of the abdomen. COMPARISON: Radiograph from the same day. FINDINGS: The calcification previously seen in the right pelvis is no longer evident. A small phlebolith is seen in the left pelvis. There is a uzyhc-ma-rxrcobqv amount of stool throughout the colon. Bowel loops are nondistended. There is no large collection of free air. No acute osseous abnormality is seen. IMPRESSION: The calcification previously seen in the right pelvis in the region of the distal ureter is no longer evident. Dictated by: Dictated on workstation # [id number]
--- NOTE | 2019-01-23 21:18 | OPERATIVE REPORT ---
DATE OF SERVICE: 01/23/2019 PREOPERATIVE DIAGNOSIS: Right distal ureteral stone. POSTOPERATIVE DIAGNOSIS: Right distal ureteral stone. OPERATION PERFORMED: Right ureteroscopy with stone lithotripsy. SURGEON: Nick Kaba MD. ANESTHESIA: General. COMPLICATIONS: None. DESCRIPTION OF PROCEDURE: Under satisfactory general anesthesia, the patient in lithotomy position, genitalia were prepped and draped in the usual sterile fashion. A 23-Estonian cystoscope was introduced in the bladder. The bladder was examined and was normal. Using the foroblique lens, I dilated the right ureteral orifice intramural portion to accommodate a 6.9-Estonian semirigid ureteroscope. I visualized the stone that was floating, so using the lithoclast fiber, I delivered first at kV of 5, so I do not lose the stone proximally since it has been floating. I was able to break it into three nice pieces, so I increased after that to 12 and broke up the fragments, had to usman some of the fragments up into the proximal ureter. However, the fragments were completely broken and there was nothing beyond that. Some of the fragments flew down into the bladder. I went back into the ureteroscope to confirm absence of any significant fragments. There was no reason to stent. The ureteroscope was removed. I passed the cystoscope into the bladder. The patient tolerated the procedure and anesthesia well and was sent to recovery room in stable condition. The renal stone profile preoperatively was normal. We will do a stone risk profile when she goes back on the regular activity and diet. Job ID: [id number] DocumentID: [id number] Dictated Date: 01/23/2019 12:54:14 Journalism Intern Date: 01/23/2019 21:17:44 Dictated By: NICK KABA MD
== END 2019-01-23 14:50 | disposition home or self-care (01) ==
LOC: SDC 10:06
PROVIDERS: ATTEND Urology
DX: N20.1 Calculus of ureter (principal); Z88.2 Allergy status to sulfonamides
CPT/HCPCS: 36415; 74018; 82140; 82340; 82507; 82570; 83735; 83945; 83986; 84105; 84133; 84300; 84392; 84560; 84703; 87081

== ENCOUNTER → 2019-08-21 | Outpatient (CLI) | payer OTHER ==
[~2019-08-21] MED LIST changes: +PHEN-640 PO; -TAMS0.4C98 PO; +TMSL.4C PO
--- NOTE | 2019-08-21 16:38 | Diagnostic Imaging Report ---
INDICATION: Pelvic pain, 11 month post with absent cycles. TECHNIQUE: Multiple real time casillas scale sonographic images were obtained of the pelvis transabdominally.. CORRELATION STUDY: None FINDINGS: UTERUS: 7.9 x 2.9 x 3.9 cm. The uterus appears unremarkable. ENDOMETRIUM: 3 mm. The endometrium appearing unremarkable. RIGHT OVARY: 3.4 x 1.6 x 1.5 cm LEFT OVARY: 2.5 x 1.2 x 2.7 cm The ovaries demonstrate a few small cysts and/or follicles, likely physiologic. No concerning mass. Normal blood flow to the ovaries. No significant free pelvic fluid. IMPRESSION: 1. Unremarkable appearing pelvic ultrasound examination. Dictated by: Dictated on workstation # [id number]
== END ==
LOC: RAD 15:17
PROVIDERS: ATTEND Family Medicine
DX: R10.2 Pelvic and perineal pain (principal)
CPT/HCPCS: 76856

== ENCOUNTER → 2021-11-14 | Outpatient (CLI) | payer OTHER ==
[~2021-11-14] MED LIST changes: -OXYC-471 PO; +OXYC1TAB11 PO
--- NOTE | 2021-11-14 17:56 | Diagnostic Imaging Report ---
PROCEDURE: CT abdomen and pelvis without contrast. TECHNIQUE: Multiple contiguous axial images were obtained through the abdomen and pelvis without the use of intravenous contrast. Auto Exposure Controls were utilized during the CT exam to meet ALARA standards for radiation dose reduction. INDICATION: Pelvic pain with hematuria. The patient does have a history of kidney stones. FINDINGS: Lung bases are clear. Liver and gallbladder are unremarkable. Pancreas and spleen are unremarkable. No adrenal mass is detected. There are nonobstructing calculi within both kidneys. In addition, there appears to be a 6 cm calculus in the proximal right ureter. No significant hydronephrosis is detected. No other ureteral calculi are seen. No bladder calculi are detected. Aorta is nonaneurysmal. Small and large bowel loops are normal in caliber. There is no obstruction. Uterus is unremarkable. There is no free fluid. IMPRESSION: Bilateral nonobstructing nephrolithiasis. In addition, there is a 6 mm calculus in the proximal right ureter without significant hydronephrosis. Dictated by: Dictated on workstation # [id number]
== END ==
LOC: RAD 16:45
PROVIDERS: ATTEND Family Medicine
DX: N20.2 Calculus of kidney with calculus of ureter (principal)
CPT/HCPCS: 74176

== ENCOUNTER 2021-11-20 14:07 | Outpatient (CLI) | payer OTHER ==
[~2021-11-20] VITALS: Ht 160 cm; Wt 54.5 kg
[~2021-11-20 14:07] MED LIST changes: -NITR-65 PO
[2021-11-21] MEDS ORDERED: KETO10TA PO (14:39)
[2021-11-21] MEDS ORDERED: TMSL.4C PO (14:39)
[2021-11-21] MEDS ORDERED: NITR-65 PO (14:39)
== END 2021-11-20 16:51 | disposition home or self-care (01) ==
LOC: PREOP 14:07
PROVIDERS: ATTEND Urology
DX: Z01.818 Encounter for other preprocedural examination (principal)

== ENCOUNTER → 2021-11-20 | Outpatient (CLI) | payer OTHER ==
[~2021-11-20] MED LIST changes: +NITR-65 PO
--- NOTE | 2021-11-20 13:57 | Diagnostic Imaging Report ---
INDICATION: Bilateral renal and ureteral stones. TIME OF EXAM: 1:09 PM. COMPARISON: Correlation is made with the prior radiograph from 01/23/2019. FINDINGS: Calcific densities overlie both kidneys. The largest on the right measures 7 mm. No definite calculi along the course of the ureters are seen. There are some pelvic calcifications which may represent phleboliths. There is moderate stool throughout the colon. IMPRESSION: There are findings suggestive of bilateral nephrolithiasis. No definite ureteral calculi are seen. Dictated by: Dictated on workstation # [id number]
== END ==
LOC: RAD 12:43
PROVIDERS: ATTEND Urology
DX: N20.2 Calculus of kidney with calculus of ureter (principal)
CPT/HCPCS: 74018

== ENCOUNTER 2021-11-21 10:17 | Day surgery (SDC) | payer OTHER ==
[~2021-11-21] VITALS: Ht 160 cm; Wt 54.5 kg
[2021-11-21] VITALS (11 sets, daily range): BP systolic 92–114; BP diastolic 44–85
--- NOTE | 2021-11-21 10:23 | Progress Note-Pre Operative ---
Pre-Operative Progress Note H&P Reviewed The H&P was reviewed, patient examined and no changes noted. Date Seen by Provider: November 21, 2021 Time Seen by Provider: : Date H&P Reviewed: November 21, 2021 Time H&P Reviewed: :23 Pre-Operative Diagnosis: RT RENAL STONE EDGARD KABA MD November 21, 2021 10:23
[2021-11-21] MEDS ORDERED: cefTRIAXone 1 GM PRE-MIX 50 ML IV ONE (10:45)
[2021-11-21] MEDS ORDERED: LACTATED RINGERS 1,000 ML IV PRN (10:45)
--- NOTE | 2021-11-21 11:06 | Progress Note-Post Operative ---
Post-Operative Progess Note Surgeon (s)/Railroad Construction Director (s) Surgeon EDGARD KABA MD Railroad Construction Director: NONE Pre-Operative Diagnosis RT RENAL STONE Post-Operative Diagnosis SAME Procedure & Operative Findings Date of Procedure 11/21/21 Procedure Performed/Findings RT ESWL Anesthesia Type GENERAL Estimated Blood Loss Estimated blood loss (mL): NONE Specimens/Packing Specimens Removed NONE Packing: NONE EDGARD KABA MD November 21, 2021 11:06
--- NOTE | 2021-11-21 11:07 | Discharge Inst-Urology ---
Discharge Inst-Urology Reconcile Patient Problems Problems Reviewed?: Yes Final Diagnosis RT RENAL STONE Patient Instructions/Follow Up Plan/Assessment/Instructions Please make appointment to been seen in office Monday 12/04. KUB prior to it KUB on way home Post ESWL instructions Increase oral fluids for 48 hours and then as needed. Diet and Activity as tolerated. If questions or concerns contact your physician Or seek help at emergency department. EDGARD KABA MD November 21, 2021 11:07
--- NOTE | 2021-11-21 11:12 | Diagnostic Imaging Report ---
INDICATION: Lithotripsy, renal stones. COMPARISON: November 20, 2021. TECHNIQUE: Single radiograph of the abdomen dated November 21, 2021. FINDINGS: 8 mm calcification overlying the mid right renal shadow is again identified, appearing similar to the prior examination. A couple of tiny calcifications are identified overlying the left renal shadow, largest measuring up to 2 mm. These appear stable from the prior examination. Tiny calcifications related to phleboliths are again identified within the lower pelvis. No new calcifications along the expected course of the bilateral ureters. Nonobstructive bowel gas pattern. No free air. No acute osseous abnormality. IMPRESSION: Bilateral renal calculi are again noted, appearing similar to the prior exam. Dictated by: Dictated on workstation # [id number]
[2021-11-21] MEDS ORDERED: FUROSEMIDE 40 MG/4 ML INJ (LASIX) ONE (12:26)
[2021-11-21] MEDS ORDERED: LIDOCAINE PF 2% 5 ML (XYLOCAINE) VIAL ONE (12:27)
[2021-11-21] MEDS ORDERED: KETOROLAC 30 MG/ML VIAL ONE (12:27)
[2021-11-21] MEDS ORDERED: proPOfol 200 MG/20 ML (DIPRIVAN) VIAL IV ONE (12:27)
[2021-11-21] MEDS ORDERED: ONDANSETRON 4 MG/2 ML (SDV) Z0FRAN ONE (12:27)
[2021-11-21] MEDS ORDERED: MIDAZOLAM 2 MG/2 ML (VERSED) VIAL ONE (12:27)
[2021-11-21] MEDS ORDERED: fentaNYL INJ 100 MCG/2 ML AMP ONE (12:43)
[2021-11-21] MEDS ORDERED: SEVOFLURANE (ULTANE) 15 ML INHAL SOLN ONE (13:12)
[2021-11-21] MEDS ORDERED: morphine INJ 10 MG/ML 1ML (SYR OR VIAL) IVP ONE (13:30)
[2021-11-21] MEDS ORDERED: MEPERIDINE (DEMEROL) INJ 50 MG/ML IVP ONE (13:30)
[2021-11-21] MEDS ORDERED: HYDROmorphone 2 MG/ML VIAL (DILAUDID) IV ONE (13:30)
[2021-11-21] MEDS ORDERED: ONDANSETRON 4 MG/2 ML (SDV) Z0FRAN IVP PRN (13:30)
[2021-11-21] MEDS ORDERED: PROMETHAZINE INJ 25 MG/ML (PHENERGAN) AMP IVP ONE (13:30)
[2021-11-21] MEDS ORDERED: TMSL.4C PO (14:39)
[2021-11-21] MEDS ORDERED: NITR-65 PO (14:39)
[2021-11-21] MEDS ORDERED: KETO10TA PO (14:39)
--- NOTE | 2021-11-21 15:30 | Diagnostic Imaging Report ---
INDICATION: Nephrolithiasis. EXAMINATION: KUB at 3:16 p.m. FINDINGS: There is a moderate amount of stool gas and stool in the colon, which partially obscures the right kidney. The previously seen calculus in the right kidney is not apparent as an intact stone. So small stone fragments cannot be excluded, however. IMPRESSION: Discrete calculus is not seen in the right kidney; however, the kidney is largely obscured by the colon. Dictated by: Dictated on workstation # [id number]
--- NOTE | 2021-11-21 21:14 | OPERATIVE REPORT ---
DATE OF SERVICE: 11/21/2021 PREOPERATIVE DIAGNOSIS: Right renal stone. POSTOPERATIVE DIAGNOSIS: Right renal stone. OPERATION PERFORMED: Right ESWL. SURGEON: Nick Kaba MD ANESTHESIA: General. COMPLICATIONS: None. DESCRIPTION OF PROCEDURE: Under satisfactory general anesthesia, the patient in supine position on the ESWL table, the right renal stone was localized. Shocks were delivered increasing gradually to 6 kV. A total of 2500 shocks were delivered and fragmented the stone nicely, which was hardly to be seen. The patient received 40 mg of Lasix and 30 mg of Toradol IV at the end of the procedure. She tolerated the procedure and anesthesia well and was sent to recovery room in stable condition. Job ID: [id number] DocumentID: [id number] Dictated Date: 11/21/2021 13:02:39 Carpet Binder Date: 11/21/2021 21:13:55 Dictated By: NICK KABA MD
--- NOTE | 2021-11-22 08:28 | Anesthesia-General Post-Op ---
General Patient Condition Mental Status/LOC: Same as Preop Cardiovascular: Satisfactory Nausea/Vomiting: Absent Respiratory: Satisfactory Pain: Controlled Complications: Absent Post Op Complications Complications None Follow Up Care/Instructions Patient Instructions None needed. Anesthesia/Patient Condition Patient Condition Patient is doing well, no complaints, stable vital signs, no apparent adverse anesthesia problems. No complications reported per nursing. SORAYA MORALES CRNA November 22, 2021 08:28
== END 2021-11-21 15:25 | disposition home or self-care (01) ==
LOC: SDC 10:17
PROVIDERS: ATTEND Urology
DX: N20.0 Calculus of kidney (principal)
CPT/HCPCS: 74018; 84703; 87081

== ENCOUNTER → 2021-12-04 | Outpatient (CLI) | payer OTHER ==
[~2021-12-04] MED LIST changes: +NITR-65 PO
--- NOTE | 2021-12-04 17:24 | Diagnostic Imaging Report ---
INDICATION: Follow-up renal calculus. COMPARISON: 11/21/2021 FINDINGS: Single frontal radiographic view of the abdomen was obtained. Two punctate extraosseous calcifications are identified projecting over the inferior pole of the left renal shadow. These are felt to correspond to calculi seen on previous CT. No other definite extraosseous calcification is seen to correspond to right-sided calculus seen on prior exam. Small bowel loops are nondistended. There is no large collection of free intraperitoneal air. No unexpected radiopaque foreign bodies are seen. IMPRESSION: 1. Redemonstration punctate left renal calculi. 2. Nonobstructed small bowel gas pattern. Dictated by: Dictated on workstation # [id number]
== END ==
LOC: RAD 15:16
PROVIDERS: ATTEND Urology
DX: N20.0 Calculus of kidney (principal)
CPT/HCPCS: 74018

== ENCOUNTER 2021-12-12 14:27 | Outpatient (RCR) | payer OTHER | END 2021-12-19 | disposition home or self-care (01) | LOC: LAB 14:27 | PROVIDERS: ATTEND Urology | DX: Z87.442 Personal history of urinary calculi (principal) | CPT/HCPCS: 36415; 82140; 82340; 82507; 82570; 83735; 83945; 83986; 84105; 84133; 84300; 84392; 84560; 88300 ==

== ENCOUNTER → 2022-05-07 | Outpatient (CLI) | payer OTHER ==
--- NOTE | 2022-05-07 17:43 | Diagnostic Imaging Report ---
INDICATION: Injury, pain. EXAMINATION: Sacrum and coccyx, 3 views, on 05/07/2022. FINDINGS: There is mild posterior subluxation of the distal sacrum with anterior angulation of the coccyx. The remaining osseous structures are intact. No dislocations. IMPRESSION: Abnormal alignment of the distal sacrum and coccyx, likely acute given history. Dictated by: Dictated on workstation # [id number]
== END ==
LOC: RAD 16:50
PROVIDERS: ATTEND Nurse Practitioner Family
DX: S39.92XA Unspecified injury of lower back, initial encounter (principal); X58.XXXA Exposure to other specified factors, initial encounter
CPT/HCPCS: 72220

== ENCOUNTER → 2022-11-29 | Outpatient (CLI) | payer OTHER ==
--- NOTE | 2022-11-29 11:40 | Diagnostic Imaging Report ---
PROCEDURE: US Gallbladder. TECHNIQUE: Multiple real-time grayscale images were obtained over the right upper quadrant in various projections. INDICATION: Right upper quadrant pain. Liver is normal in size at 14 cm. Portal vein is patent and shows normal direction of flow. Gallbladder is without stones or sludge. There is no wall thickening or biliary duct dilatation. Pancreas unremarkable. Aorta is nonaneurysmal. IVC is patent. Right kidney is without calculi or hydronephrosis. There is no ascites. IMPRESSION: Unremarkable gallbladder ultrasound. Dictated by: Dictated on workstation # [id number]
== END ==
LOC: RAD 08:00
PROVIDERS: ATTEND Surgery
DX: R10.11 Right upper quadrant pain (principal)
CPT/HCPCS: 76705

== ENCOUNTER 2022-12-05 13:45 | Outpatient (CLI) | payer OTHER ==
[~2022-12-05] VITALS: Ht 160 cm; Wt 49.7 kg
[2022-12-05] MEDS ORDERED: OMEP40CA6 PO (15:03)
[2022-12-05] MEDS ORDERED: SUCR1TAB PO (15:03)
== END 2022-12-05 16:06 ==
LOC: PREOP 13:45
PROVIDERS: ATTEND Surgery
DX: Z01.818 Encounter for other preprocedural examination (principal)

== ENCOUNTER 2022-12-11 05:35 | Outpatient (CLI) | payer OTHER ==
[~2022-12-11] VITALS: Ht 160 cm; Wt 49.7 kg
[~2022-12-11 05:35] MED LIST changes: +OMEP40CA6 PO; +SUCR1TAB PO
[2022-12-13] MEDS ORDERED: HYDR-3817 PO (12:28)
== END 2022-12-11 12:38 | disposition home or self-care (01) ==
LOC: PREOP 05:35
PROVIDERS: ATTEND Surgery
DX: Z01.818 Encounter for other preprocedural examination (principal)

== ENCOUNTER 2022-12-13 12:01 | Day surgery (SDC) | payer OTHER ==
[~2022-12-13] VITALS: Ht 160 cm; Wt 49.7 kg
[2022-12-13] VITALS (12 sets, daily range): BP systolic 92–120; BP diastolic 47–77
[2022-12-13] MEDS ORDERED: ceFAZolin INJECTION 1,000 MG in NS (IVPB) 50 ML IV ONE (12:15)
[2022-12-13] MEDS ORDERED: BUP/EPI 0.5% 1:200,000 (SENSORCAINE) 30 ML VIAL ONE (12:19)
--- NOTE | 2022-12-13 12:26 | Progress Note-Pre Operative ---
Pre-Operative Progress Note Date of Available H&P: December 13, 2022 Date H&P Reviewed: December 13, 2022 Time H&P Reviewed: 12:30 History & Physical: No changes noted Pre-Operative Diagnosis: PUD, sx biliary dyskinesia SORAYA LYONS MD December 13, 2022 12:26
[2022-12-13] MEDS ORDERED: HYDR-3817 PO (12:28)
--- NOTE | 2022-12-13 12:28 | Discharge Inst-Surgical ---
D/C Lap Instructions-SERENA New, Converted, or Re-Newed RX: RX on Chart Follow Up Appt in 2 weeks Activity as tolerated No driving for 24 hours No driving while on pain medications Incentive Spirometry use every 2 hours while awake Regular Diet Symptoms to Report: Fever over 101 degree F, Nausea/Vomiting Infection Signs and Symptoms to report: Increased redness, Foul odor of wound, Increased drainage Bathing instructions: May shower Operative Area Clean/Dry; Keep incision clean/dry If any problems/questions: Contact your physician or go to Emergency Room SORAYA LYONS MD December 13, 2022 12:28
[2022-12-13] MEDS ORDERED: oxyCODONE/APAP 5/325MG (PERCOCET 5) TABLET PO PRN (12:30)
[2022-12-13] MEDS ORDERED: ONDANSETRON 4 MG/2 ML (SDV) Z0FRAN IVP PRN ×2 (12:30→15:30)
[2022-12-13] MEDS ORDERED: morphine INJ 10 MG/ML 1ML (SYR OR VIAL) IVP PRN ×2 (12:30)
[2022-12-13] MEDS: LACTATED RINGERS 1,000 ML IV PRN ×2 (12:30→14:30)
[2022-12-13] MEDS ORDERED: ACETAMINOPHEN 325 MG TABLET PO PRN (12:30)
[2022-12-13] MEDS ORDERED: ROCURONIUM 50 MG/5 ML (ZEMURON) VIAL IV ONE (13:09)
[2022-12-13] MEDS ORDERED: ONDANSETRON 4 MG/2 ML (SDV) Z0FRAN ONE ×3 (13:09→15:51)
[2022-12-13] MEDS ORDERED: proPOfol 200 MG/20 ML (DIPRIVAN) VIAL IV ONE (13:09)
[2022-12-13] MEDS ORDERED: LIDOCAINE PF 2% 5 ML (XYLOCAINE) VIAL ONE (13:09)
[2022-12-13] MEDS ORDERED: fentaNYL INJ 100 MCG/2 ML AMP ONE (13:12)
[2022-12-13] MEDS ORDERED: MIDAZOLAM 2 MG/2 ML (VERSED) VIAL ONE (13:12)
[2022-12-13] MEDS ORDERED: KETOROLAC 30 MG/ML VIAL ONE (14:31)
[2022-12-13] MEDS ORDERED: BUP/EPI 0.5% 1:200,000 (SENSORCAINE) 30 ML VIAL INJ ONE (14:46)
[2022-12-13] MEDS ORDERED: SEVOFLURANE (ULTANE) 15 ML INHAL SOLN ONE (15:11)
--- NOTE | 2022-12-13 15:27 | Anesthesia-General Post-Op ---
General Patient Condition Mental Status/LOC: Same as Preop Cardiovascular: Satisfactory Nausea/Vomiting: Absent Respiratory: Satisfactory Pain: Controlled Complications: Absent Post Op Complications Complications None Follow Up Care/Instructions Patient Instructions None needed. Anesthesia/Patient Condition Patient Condition Patient is doing well, no complaints, stable vital signs, no apparent adverse anesthesia problems. No complications reported per nursing. ROSANNE NATION CRNA December 13, 2022 15:27
[2022-12-13] MEDS ORDERED: fentaNYL INJ 100 MCG/2 ML AMP IVP ONE (15:30)
[2022-12-13] MEDS ORDERED: MEPERIDINE (DEMEROL) INJ 50 MG/ML IVP ONE (15:30)
[2022-12-13] MEDS ORDERED: morphine INJ 10 MG/ML 1ML (SYR OR VIAL) IVP ONE (15:30)
--- NOTE | 2022-12-13 15:39 | Progress Note-Post Operative ---
Post-Operative Progess Note Surgeon (s)/Commercial Door Installer (s) Surgeon SORAYA LYONS MD Commercial Door Installer: james donohue TELETYPE INSTALLER Pre-Operative Diagnosis PUD, sx biliary dyskinesia Post-Operative Diagnosis mild gastritis, biliary dyskinesia Procedure & Operative Findings Date of Procedure 12/13/22 Procedure Performed/Findings EGD with bx. laparoscopic cholecystectomy Anesthesia Type get Estimated Blood Loss Estimated blood loss (mL): minimal Specimens/Packing Specimens Removed ge jxn, antrum. gallbladder SORAYA LYONS MD December 13, 2022 15:39
[2022-12-13] MEDS ORDERED: morphine INJ 10 MG/ML 1ML (SYR OR VIAL) ONE (15:41)
[2022-12-13] MEDS ORDERED: HYDROcodone/APAP 5 MG/325 MG (LORTAB) TAB ONE (16:27)
[2022-12-13] MEDS ORDERED: HYDROcodone/APAP 5 MG/325 MG (LORTAB) TAB PO ONE (16:45)
--- NOTE | 2022-12-14 03:36 | OPERATIVE REPORT ---
DATE OF SERVICE: 12/13/2022 ATTENDING PRIMARY CARE PHYSICIAN: Dr. Suhas Delarosa. PREOPERATIVE DIAGNOSES: Epigastric and right upper abdominal quadrant pain, early satiety. POSTOPERATIVE DIAGNOSES: Mild reflux esophagitis grade A. No significant hiatal hernia. Mild gastritis. PROCEDURE: EGD with biopsy. SURGEON: Soraya Lyons MD ANESTHESIA: General endotracheal. ESTIMATED BLOOD LOSS: Minimal. FINDINGS: Mild reflux esophagitis grade A. No significant hiatal hernia. Mild gastritis. DISPOSITION: The patient tolerated the procedure well. INDICATIONS: The patient is a 32-year-old female who has had a constellation of symptoms including epigastric and right upper abdominal quadrant pain on an intermittent basis. She has also had issues with abdominal bloating and early satiety after eating meals. She states that this has been going on for the past several months; however, has become more frequent. She states that she does have a slightly anxious personality and she does have some stressors in her life. She did have a slight improvement in issue with abdominal bloating as well as early satiety as well as the pain in both the epigastric and right upper abdominal quadrant. DESCRIPTION OF PROCEDURE: The patient was brought to the operating room, laid supine on the table. After adequate IV pain and sedative medications and general endotracheal intubation, the mouthpiece was applied. The endoscope was placed in the mouth, visualizing the pharynx and hypopharyngeal region. Vocal cords, epiglottis, and vallecula identified and appeared to be normal. The endoscope was then gently intubated into the esophageal opening and esophagus insufflated. The endoscope was then advanced through the first, second, and third portions of esophagus at the level of the GE junction. Reflux esophagitis [place] grade A identified. This was very mild. A biopsy was taken with forceps with visualization of good hemostasis. The endoscope was then advanced into the stomach and endoscope retroflexed, visualizing no significant hiatal hernia. There was a mild gastritis. No ulcers, polyps, or any neoplasms. A biopsy was taken of the antrum to rule out H. pylori with visualization of good hemostasis. The endoscope was then advanced through the pylorus and the first and second portion of the duodenum, which appeared normal with no distal obstructions. The endoscope was then slowly withdrawn while taking a second look and suctioning of residual air with no additional findings. The patient tolerated the procedure well. We will recommend continued medical management with avoidance of caffeinated beverages, spicy, greasy, and acidic foods. We will also recommend taking a small and more frequent meals and avoidance of eating at night. We will also have her continue with the omeprazole 40 mg daily for approximately 2 months and then she may proceed with a trial of discontinuation. She does not need to take the Carafate anymore at this time. Job ID: [id number] DocumentID: [id number] Dictated Date: 12/13/2022 14:36:51 Special Equipment Technician Date: 12/13/2022 20:11:00 Dictated By: SORAYA LYONS MD
--- NOTE | 2022-12-31 23:44 | OPERATIVE REPORT ---
DATE OF SERVICE: 12/13/2022 ATTENDING PRIMARY CARE PHYSICIAN: Suhas Delarosa MD PREOPERATIVE DIAGNOSIS: Symptomatic biliary dyskinesia. POSTOPERATIVE DIAGNOSIS: Symptomatic biliary dyskinesia. PROCEDURE: Laparoscopic cholecystectomy. SURGEON: Soraya Lyons MD SOFTWARE VALIDATION ENGINEER: Wilmer Moore APRN ANESTHESIA: General endotracheal. ESTIMATED BLOOD LOSS: Minimal. FINDINGS: Distended gallbladder, no gallbladder wall thickening. DISPOSITION: The patient tolerated the procedure well. INDICATIONS: The patient is a 32-year-old female who has had a constellation of symptoms including epigastric and right upper abdominal quadrant pain on an intermittent basis. She had also described abdominal bloating and early satiety after eating meals and this has been going on for several months; however, has become more frequent and she states that she has lost some weight during that timeframe. She underwent the gallbladder ultrasound, which did not show any gallstones and then she underwent a HIDA scan, which showed a normal ejection fraction; however, she did have reproduction of symptoms with abdominal bloating and nausea after the administration of the Kinevac analogue consistent with biliary dyskinesia. DESCRIPTION OF PROCEDURE: The patient was brought to the operating room, laid supine on the table. After adequate IV pain and sedative medications and general endotracheal intubation, the abdomen was prepped and draped in standard surgical fashion. A 0.5% Marcaine with epinephrine was used to anesthetize the overlying skin in the left upper abdominal quadrant and a transverse skin incision made using a #15 blade. An 0 silk suture was applied to the medial aspect of the incision for retraction and a Veress needle inserted with a low opening pressure of 0 mmHg and the abdomen was then insufflated to 15 mmHg pressure. The Veress needle removed and a 5 mm XL trocar placed, followed by a 5 mm 45-degree angle laparoscope visualized the peritoneal cavity. A 4-quadrant abdominal exploration was performed. There was a slightly distended gallbladder, no gallbladder wall thickening. Liver, stomach, omentum appeared normal. Under direct visualization, we then proceeded to place a supraumbilical 10 mm port after the skin and peritoneal lining were anesthetized using 0.5% Marcaine with epinephrine and a transverse skin incision made using a #15 blade. In a similar manner, a right upper abdominal quadrant 5 mm port was placed. The patient was then placed in reverse Trendelenburg position as well as plane right side up, left side down. The fundus of the gallbladder was then retracted anteriorly and superiorly. The hepatoduodenal ligament was then dissected using blunt dissection as well as electrocautery using the hook instrument as well as a [place] dissector. The entire critical view of safety was identified including the triangle of [place] well as the cystic duct and artery as the only 2 structures going into the gallbladder as well as the cystic plate behind the proximal gallbladder. A timeout was then taken and the cystic duct and artery were then clipped proximally and distally and cut with EndoShears. The gallbladder was then dissected off of the liver bed using cautery on the hook instrument with visualization of good hemostasis as well as no leaking ducts of [place]. The gallbladder was removed through the 10 mm port site using an EndoCatch bag. The 10 mm port site fascia and peritoneum were then closed under direct visualization using a Cricket-Braxton device and an 0 Vicryl suture. The abdomen was then desufflated and the remaining ports were removed. All skin incisions were closed using 4-0 Monocryl running subcuticular sutures. Wounds were then cleaned and covered with Dermabond. The patient tolerated the procedure well. We will start IV normal pain medication as well as a clear liquid diet. Once she is tolerating clears with good pain control with oral pain medications, ambulating well, we will discharge her home where she will be instructed to do no heavy lifting or exertion for the next 2 weeks. Job ID: [id number] DocumentID: [id number] Dictated Date: 12/31/2022 16:47:05 Billing Spec Date: 12/31/2022 23:42:00 Dictated By: SORAYA LYONS MD
== END 2022-12-13 17:55 | disposition home or self-care (01) ==
LOC: SDC 12:01
PROVIDERS: ATTEND Surgery
DX: K29.50 Unspecified chronic gastritis without bleeding (principal); K21.00 Gastro-esophageal reflux disease with esophagitis, without bleeding; K81.1 Chronic cholecystitis; K82.8 Other specified diseases of gallbladder; Z79.899 Other long term (current) drug therapy; Z28.310 Unvaccinated for COVID-19
CPT/HCPCS: 84703; 87081; 88304; 88305